=== PATIENT | male | born 1990 | race Caucasian/White ===

== ENCOUNTER 2019-04-04 18:47 | Emergency (ER) | payer SELFPAY ==
[~2019-04-04] VITALS: Ht 193 cm; Wt 93.0 kg
[2019-04-04 18:47] VITALS: BP 144/92
[2019-04-04] MEDS ORDERED: AZITHROMYCIN 250 MG TABLET. PO ONE (19:15)
[2019-04-04] MEDS ORDERED: cefTRIAXone IM 250 MG VIAL IM ONE (19:15)
--- NOTE | 2019-04-04 19:17 | PHYS DOC ---
Adult General HPI HPI Patient is a 29-year-old male presenting with drainage from the penis. Urination ever since and protected intercourse on [place]. No fever occasional abdominal discomfort comes and goes no vomiting has had chlamydia before it feels exactly the same. No rash noted he declined a exam in my presence. Review of Systems Review of Systems Constitutional: Musculoskeletal: Denies back pain or joint pain [] Integument: Denies rash or skin lesions [] Neurologic: Denies headache, focal weakness or sensory changes [] All other systems were reviewed and found to be within normal limits, except as documented in this note. Current Medications Current Medications Current Medications Medications (Trade) Dose Ordered Sig/Pooja Start Time Stop Time Status Last Admin Dose Admin Azithromycin (Zithromax) 1,000 mg 1X ONCE 04/04/19 19:15 04/04/19 19:16 UNV Ceftriaxone Sodium (Rocephin Im) 250 mg 1X ONCE 04/04/19 19:15 04/04/19 19:16 UNV Physical Exam Physical Exam Constitutional: Well developed, well nourished, no acute distress, non-toxic appearance. [] HENT: Normocephalic, atraumatic, bilateral external ears normal, oropharynx moist, no oral exudates, nose normal. [] Eyes: PERRLA, EOMI, conjunctiva normal, no discharge. [] Pulmonary: Normal respiratory effort no increased work of breathing no obvious chest wall trauma exam was deferred at patient request Back: No tenderness, no CVA tenderness. [] Extremities: No tenderness, no cyanosis, no clubbing, ROM intact, no edema. [] Neurologic: Alert and oriented X 3, normal motor function, normal sensory function, no focal deficits noted. [] Psychologic: Affect normal, judgement normal, mood normal. [] EKG EKG [] Radiology/Procedures Radiology/Procedures [] Course & Med Decision Making Course & Med Decision Making Pertinent Labs and Imaging studies reviewed. (See chart for details) []Urethritis treated with Septra accident and azithromycin in the emergency room discharge stable condition. See nurse's note for complete vitals on safe sex Dragon Disclaimer Dragon Disclaimer This electronic medical record was generated, in whole or in part, using a voice recognition dictation system. Departure Departure: Impression: Primary Impression: Urethritis Disposition: 01 HOME, SELF-CARE Condition: STABLE Patient Instructions: Urethritis, Adult FADI MALIN MD Apr 04, 2019 19:17
== END 2019-04-04 19:34 | disposition home or self-care (01) ==
LOC: ER 18:47
DX: N34.2 Other urethritis (principal)
CPT/HCPCS: 36415; 87491; 87591; 96372; 99284; J0456; J0696

== ENCOUNTER 2019-10-15 04:51 | Emergency (ER) | payer SELFPAY ==
[~2019-10-15] VITALS: Ht 193 cm; Wt 88.6 kg
[2019-10-15] MEDS ORDERED: DIPH,PERTUSS(ACELL),TET VAC/PF 0.5 ML SYRINGE. VAX IM ONE (05:12)
[2019-10-15] MEDS ORDERED: ceFAZolin SODIUM 1 GM VIAL ONE (05:12)
[2019-10-15] MEDS ORDERED: IV NORMAL SALINE 50ML 50 ML ONE (05:12)
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
[2019-10-15 05:47] LABS: BASO % 0 % (0-3); EOS % 0 % (0-3); HEMOGLOBIN 14.6 g/dL (13.0-17.5); LYMPH # 1.5 x10^3/uL (1.0-4.8); LYMPH % 13 % (24-48); MEAN CORPUSCULAR HEMOGLOBIN 29 pg (25-35); MEAN CORPUSCULAR HGB CONC 33 g/dL (31-37); MEAN CORPUSCULAR VOLUME 88 fL (79-100); MONO # 0.7 x10^3/uL (0.0-1.1); MONO % 6 % (0-9); NEUT # 9.2 x10^3uL (1.8-7.7); NEUT % 81 % (31-73); PLATELET COUNT 218 x10^3/uL (140-400); RED BLOOD COUNT 5.03 x10^6/uL (4.30-5.70); RED CELL DISTRIBUTION WIDTH 13.7 % (11.5-14.5); WHITE BLOOD COUNT 11.4 x10^3/uL (4.0-11.0)
[2019-10-15 05:53] LABS: CREATININE 1.3 mg/dL (0.7-1.3); GFR 66.2; POTASSIUM 3.6 mmol/L (3.5-5.1)
[2019-10-15 05:56] LABS: ALBUMIN 4.1 g/dL (3.4-5.0); ALBUMIN/GLOBULIN RATIO 1.4 (1.0-1.7); TOTAL BILIRUBIN 0.3 mg/dL (0.2-1.0)
[2019-10-15] MEDS ORDERED: ONDANSETRON PF 4 MG/2 ML VIAL. IVP ONE (06:00)
[2019-10-15] MEDS ORDERED: CONTRAST GIVEN MC PRN (06:15)
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
[2019-10-15] MEDS ORDERED: IOHEXOL 350 MG/ML 100 ML VIAL. IV ONE (06:30)
[2019-10-15] MEDS ORDERED: MORPHINE SULFATE 4 MG/ML DISP.SYRIN. IV ONE ×3 (06:50→13:15)
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
[2019-10-15 13:26] VITALS: BP 131/72
== END 2019-10-15 13:42 | disposition short-term general hospital (02) ==
LOC: ER 04:51 → EEVIPCON 04:51 → ER 13:42
DX: S51.001A Unspecified open wound of right elbow, initial encounter (principal); Z20.828 Contact with and (suspected) exposure to other viral communicable diseases; X95.8XXA Assault by other firearm discharge, initial encounter; Y93.89 Activity, other specified; Y92.89 Other specified places as the place of occurrence of the external cause; Y99.8 Other external cause status
CPT/HCPCS: 36415; 71045; 73060; 73070; 73206; 80053; 85025; 85610; 96365; 96375; 96376; 99285; C9803; J0690; J2270; J2405; J3010; Q9967; U0003

== ENCOUNTER 2019-11-01 20:23 | Emergency (ER) | payer MEDICAID ==
[~2019-11-01] VITALS: Ht 193 cm; Wt 94.2 kg
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
[2019-11-01] MEDS ORDERED: SMZ/TMP 800/160MG TABLET. PO ONE (21:15)
[2019-11-01] MEDS ORDERED: KETOROLAC 60 MG/2 ML VIAL. IM ONE ×2 (21:15→21:23)
[2019-11-01] MEDS ORDERED: SULF1TAB24 PO (21:21)
[2019-11-01 22:00] VITALS: BP 118/62
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
== END 2019-11-01 22:00 | disposition home or self-care (01) ==
LOC: ER 20:23
DX: M79.5 Residual foreign body in soft tissue (principal)
CPT/HCPCS: 73080; 96372; 99283; J1885